=== PATIENT | female | born 1960 | race Caucasian/White ===

== ENCOUNTER 2017-11-07 01:35 | Emergency (ER) | payer MEDICAID ==
[~2017-11-07] VITALS: Ht 152.4 cm; Wt 68.0 kg
[2017-11-07] MEDS ORDERED: DIPHENHYDRAMINE 50MG/ML VIAL IV ONE (02:45)
[2017-11-07] MEDS ORDERED: FAMOTIDINE 20MG TABLET PO ONE (02:45)
[2017-11-07] MEDS ORDERED: SODIUM CHLORIDE 0.9% 1,000 ML IV ONE (02:45)
[2017-11-07] MEDS ORDERED: PREDNISONE 20MG TABLET PO ONE (02:45)
[2017-11-07 05:31] VITALS: BP 119/77
== END 2017-11-07 05:38 | disposition home or self-care (01) ==
LOC: ER 01:45
DX: R22.0 Localized swelling, mass and lump, head (principal); R09.89 Other specified symptoms and signs involving the circulatory and respiratory systems; T39.395A Adverse effect of other nonsteroidal anti-inflammatory drugs [NSAID], initial encounter; E11.9 Type 2 diabetes mellitus without complications; Y92.89 Other specified places as the place of occurrence of the external cause
CPT/HCPCS: 96361; 96374; 99285; J1200; J7030; J7512; Z7610